=== PATIENT | female | born 1950 | race Asian ===

== ENCOUNTER → 2022-09-21 | Outpatient (CLI) | payer MEDICARE, BC | END | disposition home or self-care (01) | LOC: LAB 11:26 | PROVIDERS: ATTEND Specialist | DX: R05.9 Cough, unspecified (principal); Z20.822 Contact with and (suspected) exposure to COVID-19 | CPT/HCPCS: 87426; C9803 ==

== ENCOUNTER → 2022-09-22 | Day surgery (SDC) | payer MEDICARE, BC ==
[2022-09-22] VITALS (9 sets, daily range): BP systolic 131–161; BP diastolic 71–81
[~2022-09-22] VITALS: Ht 167.6 cm; Wt 83.9 kg
[~2022-09-22] MED LIST: FENTANYL CITRATE/PF 50MCG/ML 2ML VIAL IV SCH; FENTANYL CITRATE/PF 50MCG/ML 2ML VIAL ONE; HYDROCODONE/ACETAMINOPHEN 5/325MG TABLET PO PRN; LIDOCAINE HCL 1% 10 MG/ML 10ML VIAL ONE; NALOXONE HCL 0.4MG/ML VIAL IV PRN; SODIUM BICARBONATE 4% (2.4MEQ) 5ML VIAL IV ONE
== END | disposition home or self-care (01) ==
LOC: RAD 09:36
PROVIDERS: ATTEND Specialist
DX: R91.8 Other nonspecific abnormal finding of lung field (principal); I11.9 Hypertensive heart disease without heart failure; E78.2 Mixed hyperlipidemia; E66.3 Overweight; I25.10 Atherosclerotic heart disease of native coronary artery without angina pectoris; Z87.891 Personal history of nicotine dependence; Z79.899 Other long term (current) drug therapy; Z98.890 Other specified postprocedural states; Z88.8 Allergy status to other drugs, medicaments and biological substances
CPT/HCPCS: 32408; 71045; J3010; J3490